=== PATIENT | male | born 1945 | race Caucasian/White ===

== ENCOUNTER 2019-11-22 22:44 | Emergency (ER) | payer SELFPAY ==
[~2019-11-22] VITALS: Ht 170.2 cm; Wt 72.7 kg
[2019-11-23 05:23] VITALS: BP 177/94
--- NOTE | 2019-11-23 18:22 | PHYS DOC ---
Past Medical History Past Medical History: Other Additional Past Medical Histor: pt poor historian Past Surgical History: Other Additional Past Surgical Histo: pt is poor historian Smoking Status: Current Every Day Smoker Alcohol Use: Heavy General Adult EDM: Chief Complaint: ALCOHOL INTOXICATION HPI: HPI: Patient is a 74 year old male presents via EMS intoxicated. Per EMS [facility] police gave the patient patient an option to go to the hospital or get arrested. Patient chose to come to the hospital. On arrival he has no complaints. He is clearly intoxicated. Patient is alert moves all his extremities denies chest pain shortness of breath nausea vomiting abdominal pain. Review of Systems: Review of Systems: Constitutional: Denies fever or chills. [] Eyes: Denies change in visual acuity. [] HENT: Denies nasal congestion or sore throat. [] Respiratory: Denies cough or shortness of breath. [] Cardiovascular: Denies chest pain or edema. [] GI: Denies abdominal pain, nausea, vomiting, bloody stools or diarrhea. [] : Denies dysuria. [] Musculoskeletal: Denies back pain or joint pain. [] Integument: Denies rash. [] Neurologic: Denies headache, focal weakness or sensory changes. [] Endocrine: Denies polyuria or polydipsia. [] Lymphatic: Denies swollen glands. [] Psychiatric: Denies depression or anxiety. [] Heart Score: Risk Factors: Risk Factors: DM, Current or recent (<one month) smoker, HTN, HLP, family history of CAD, obesity. Risk Scores: Score 0 - 3: 2.5% MACE over next 6 weeks - Discharge Home Score 4 - 6: 20.3% MACE over next 6 weeks - Admit for Clinical Observation Score 7 - 10: 72.7% MACE over next 6 weeks - Early Invasive Strategies Allergies: Allergies: Allergies Coded Allergies Type Severity Reaction Last Updated Verified No Known Drug Allergies 11/22/19 No Physical Exam: PE: Constitutional: Well developed, well nourished, no acute distress, non-toxic appearance. [] HENT: Normocephalic, atraumatic, bilateral external ears normal, oropharynx moist, no oral exudates, nose normal. [] Eyes: PERRLA, EOMI, conjunctiva normal, no discharge. [] Neck: Normal range of motion, no tenderness, supple, no stridor. [] Cardiovascular:Heart rate regular rhythm, no murmur [] Lungs & Thorax: Bilateral breath sounds clear to auscultation [] Abdomen: Bowel sounds normal, soft, no tenderness, no masses, no pulsatile masses. [] Skin: Warm, dry, no erythema, no rash. [] Back: No tenderness, no CVA tenderness. [] Extremities: No tenderness, no cyanosis, no clubbing, ROM intact, no edema. [] Neurologic: Alert and oriented X 3 but intoxicated, normal motor function, normal sensory function, no focal deficits noted. [] Psychologic: Affect normal, judgement normal, mood normal. [] Current Patient Data: Vital Signs: Vital Signs Date Time Temp Pulse Resp B/P (MAP) Pulse Ox O2 Delivery O2 Flow Rate FiO2 11/23/19 05:23 90 177/94 (121) 98 Room Air 11/23/19 01:53 20 11/22/19 22:45 98.5 98.5 EKG: EKG: [] Radiology/Procedures: Radiology/Procedures: [] Course & Med Decision Making: Course & Med Decision Making Pertinent Labs and Imaging studies reviewed. (See chart for details) [] Patient was observed to sobriety. He was reevaluated in the a.m. Ambulated with a normal steady gait provided and address for discharge home. Pavithra Disclaimer: Pavithra Disclaimer: This electronic medical record was generated, in whole or in part, using a voice recognition dictation system. Departure Departure Impression: Primary Impression: Alcohol abuse with intoxication Disposition: HOME, SELF-CARE Condition: STABLE Referrals: NO PCP (PCP) Patient Instructions: Alcohol Intoxication Justicifation of Admission Dx: Justifications for Admission: Justification of Admission Dx: N/A MICHELE MIMS DO Nov 23, 2019 18:22
== END 2019-11-23 05:30 | disposition home or self-care (01) ==
LOC: ER 22:44
DX: F10.229 Alcohol dependence with intoxication, unspecified (principal); Y90.9 Presence of alcohol in blood, level not specified; F17.200 Nicotine dependence, unspecified, uncomplicated
CPT/HCPCS: 99285-25